=== PATIENT | male | born 1990 | race Two or more races ===

== ENCOUNTER 2018-10-14 15:48 | Emergency (ER) | payer OTHER ==
[~2018-10-14] VITALS: Ht 180.3 cm; Wt 104.5 kg
[2018-10-14] MEDS ORDERED: NEUR300C PO (17:54)
[2018-10-14] MEDS ORDERED: PRED10TA2 PO (17:54)
[2018-10-14] MEDS ORDERED: GABAPENTIN 300 MG CAP PO ONE (18:00)
[2018-10-14] MEDS ORDERED: KETOROLAC 60 MG/2 ML VIAL (J1885) IM ONE (18:00)
[2018-10-14] MEDS ORDERED: predniSONE 20 MG TAB PO ONE (18:00)
[2018-10-14 18:12] VITALS: BP 138/67
== END 2018-10-14 18:24 | disposition home or self-care (01) ==
LOC: M ED 15:48
DX: M54.17 Radiculopathy, lumbosacral region (principal); M54.31 Sciatica, right side; M51.37 Other intervertebral disc degeneration, lumbosacral region
CPT/HCPCS: 36415; 99283; J1885